=== PATIENT | female | born 1980 ===

== ENCOUNTER 2017-08-29 08:56 | Emergency (ER) | payer OTHER ==
[2017-08-29 09:23] VITALS: BP 136/94
--- NOTE | 2017-08-29 10:36 | RAD ---
Indication: Lateral RIGHT foot pain following rolling injury 2 days ago. Comparison: No relevant prior exams available on the [facility] [place]. Technique: AP, lateral, and oblique views RIGHT foot. Report: Negative for fracture or articular malalignment. Small plantar fascia origin bone spur. Unremarkable soft tissue contours. IMPRESSION: Negative for fracture.
--- NOTE | 2017-08-29 10:37 | UC ---
Lower Extremity/Ankle HPI - HPI Summary HPI Summary: Pt presents with c/o right lateral mid foot pain that began after she tripped and inverted right ankle two days ago. Pt states pain and swelling have worsened since initial fall. - History of Current Complaint Chief Complaint: UCLowerExtremity Stated Complaint: WC-RT ANKLE INJURY Time Seen by Provider: 08/29/17 09:57 Hx Obtained From: Patient Hx Last Menstrual Period: 08/03/17 ?: No Onset/Duration: Gradual Onset, Lasting Days, Still Present, Worse Since - onset Severity Initially: Mild Severity Currently: Moderate Pain Intensity: 6 Aggravating Factor(s): Standing, Ambulation Alleviating Factor(s): Rest, Elevation Able to Bear Weight: Yes - Risk Factors Gout Risk Factors: Negative DVT Risk Factors: Negative Septic Arthritis Risk Factor: Negative - Allergies/Home Medications Allergies/Adverse Reactions: Allergies Allergy/AdvReac Type Severity Reaction Status Date / Time No Known Allergies Allergy Verified 08/29/17 09:24 Home Medications: Home Medications Vitamins And Minerals 1 tab PO SEE INSTRUCTIONS 08/29/17 [History] PMH/Surg Hx/FS Hx/Imm Hx Previously Healthy: Yes - Surgical History Surgical History: Yes Surgery Procedure, Year, and Place: IUD PLACEMENT & REMOVAL - Family History Known Family History: Positive: Cardiac Disease - Social History Occupation: Employed Full-time Lives: With Family Alcohol Use: Weekly Substance Use Type: None Smoking Status (MU): Light Every Day Tobacco Smoker Have You Smoked in the Last Year: Yes Review of Systems Constitutional: Negative Skin: Bruising - right anterior lateral,mid foot Eyes: Negative ENT: Negative Respiratory: Negative Cardiovascular: Negative Gastrointestinal: Negative Genitourinary: Negative Motor: Negative, Decreased ROM - pain with ROM Neurovascular: Negative Musculoskeletal: Arthralgia, Edema - right anterior lateral mid foot, Myalgia Neurological: Negative Psychological: Negative Is Patient Immunocompromised?: No All Other Systems Reviewed And Are Negative: Yes Physical Exam Triage Information Reviewed: Yes Appearance: Well-Appearing Vital Signs: Initial Vital Signs Temp 98.6 F 08/29/17 09:15 Pulse 92 08/29/17 09:15 Resp 18 08/29/17 09:15 BP 136/94 08/29/17 09:15 Pulse Ox 100 08/29/17 09:15 Vital Signs Reviewed: Yes Eye Exam: Normal ENT: Positive: Hearing grossly normal Respiratory: Positive: No respiratory distress Musculoskeletal: Positive: ROM Limited @ - secondary to pain, Edema @ - right anterior mid lateral foot, half dollar size selling and bruising Neurological Exam: Normal Psychological Exam: Normal Skin Exam: Other - bruising Diagnostics - Radiology No standard instances Radiology Interpretation Completed By: Radiologist - Report: Negative for fracture or articular malalignment. Small plantar fascia origin bone spur. Unremarkable soft tissue contours. IMPRESSION: Negative for fracture. Lower Extremity Course/Dx - Differential Dx/Diagnosis Differential Diagnosis/HQI/PQRI: Contusion, Sprain, Strain Provider Diagnoses: right foot sprain. right foot contusion Discharge - Sign-Out/Discharge Documenting (check all that apply): Discharge/Admit/Transfer - Discharge Plan Condition: Stable Disposition: HOME Patient Education Materials: Foot Contusion (ED), Foot Sprain (ED) Forms: *Work Release Referrals: Darryl Dunaway MD [Medical Doctor] - If Needed Garo Slaughter [Primary Care Provider] - If Needed - Billing Disposition and Condition Condition: STABLE Disposition: HOME
== END 2017-08-29 10:57 | disposition home or self-care (01) ==
LOC: UCCORT 08:56
DX: S93.601A Unspecified sprain of right foot, initial encounter (principal); S90.31XA Contusion of right foot, initial encounter; W01.0XXA Fall on same level from slipping, tripping and stumbling without subsequent striking against object, initial encounter; Y93.9 Activity, unspecified; Y92.9 Unspecified place or not applicable; F17.210 Nicotine dependence, cigarettes, uncomplicated
CPT/HCPCS: 99212; G0463